=== PATIENT | male | born 1965 | race Caucasian/White ===

== ENCOUNTER 2019-04-01 14:37 | Emergency (ER) | payer MEDICAID ==
[~2019-04-01] VITALS: Ht 177.8 cm; Wt 93.0 kg
[2019-04-01 14:45] VITALS: BP 138/97
== END 2019-04-01 18:53 | disposition left against medical advice (07) ==
LOC: EDBD 14:37 → ER 14:41
DX: M54.5 Low back pain (principal); Z53.21 Procedure and treatment not carried out due to patient leaving prior to being seen by health care provider